=== PATIENT | male | born 1975 | race Caucasian/White ===

== ENCOUNTER 2020-09-13 09:24 | Emergency (ER) | payer BC ==
[~2020-09-13] VITALS: Ht 190.5 cm; Wt 106.6 kg
[2020-09-13 09:32] VITALS: BP 138/98
--- NOTE | 2020-09-13 09:42 | NUR ---
AT BEDSIDE FOR EVAL.
--- NOTE | 2020-09-13 10:02 | NUR ---
Patient discharged to home in stable condition. Written and verbal after care instructions given. Patient verbalizes understanding of instruction.
== END 2020-09-13 10:02 | disposition home or self-care (01) ==
LOC: ER 09:31
DX: S09.90XA Unspecified injury of head, initial encounter (principal); M79.661 Pain in right lower leg; W11.XXXA Fall on and from ladder, initial encounter; Y93.89 Activity, other specified; Y92.89 Other specified places as the place of occurrence of the external cause; Y99.8 Other external cause status